=== PATIENT | male | born 1960 | race Caucasian/White ===

== ENCOUNTER → 2017-09-20 | Outpatient (CLI) | payer OTHER ==
[~2017-09-20] MED LIST: NASACORT10.8 ML NASAL; SIMVASTATIN40 MG PO
== END ==
LOC: ULTRA 07:52
DX: N43.3 Hydrocele, unspecified (principal)

== ENCOUNTER → 2019-01-07 | Outpatient (CLI) | payer OTHER | LOC: CAT 15:05 | DX: Z13.6 Encounter for screening for cardiovascular disorders (principal); E78.00 Pure hypercholesterolemia, unspecified; I25.10 Atherosclerotic heart disease of native coronary artery without angina pectoris ==

== ENCOUNTER → 2020-04-13 | Outpatient (CLI) | payer BC, OTHER ==
[~2020-04-13] MED LIST changes: +ATORVASTATIN CA10 MG PO; +FLONASE 0.05%50 MCG NASAL; +HYDROCODON-ACE1 EAC7 PO; +PRINIVIL20 MG PO
== END ==
LOC: LAB 08:15
PROVIDERS: ATTEND Surgery
DX: Z01.812 Encounter for preprocedural laboratory examination (principal); Z20.822 Contact with and (suspected) exposure to COVID-19

== ENCOUNTER 2020-04-15 08:24 | Day surgery (SDC) | payer BC ==
[~2020-04-15] VITALS: Ht 177.8 cm; Wt 86.2 kg
[~2020-04-15 08:24] MED LIST changes: -HYDROCODON-ACE1 EAC7 PO
--- NOTE | 2020-04-15 09:44 | EKG ---
[address] [address] ELECTROCARDIOGRAM REPORT Name: MARBELLA SILVA Room #: 150-13 [facility] M..#: [id number] Admission: 04/15/20 Attend Phys: Wilian Smith MD Discharge: Date of : 56 Report #: [id number] [facility] Test Date: 2020-04-15 Test Time: 09:26:04 Pat Name: MARBELLA SILVA Department: Room: 150 13 Gender: M Respite Worker: NATALIE : 1960 Requested By: Wilian Smith Order Number: [id number] : Jak Flaherty Measurements Intervals [place] Rate: 57 P: 13 OK: 128 QRS: 79 QRSD: 103 T: 65 QT: 425 QTc: 414 Interpretive Statements Sinus rhythm Non specific ST-T changes No previous ECG available for comparison Electronically Signed On 04-15-2020 9:44:03 ORNAMENT STITCHER by Jak Flaherty [email or web address] <ELECTRONICALLY SIGNED> By: Jak Flaherty MD, [facility] 04/15/20 0944 0926 5 Jak Flaherty MD, FACC /EPI
[2020-04-15 10:18] VITALS: BP 126/85
[2020-04-15 10:19] VITALS: BP 126/85
[2020-04-15] MEDS ORDERED: HYDROCODON-ACE1 EAC7 PO (12:35)
[2020-04-15 13:00] VITALS: BP 126/85
--- NOTE | 2020-04-16 12:27 | O ---
[facility] [place] [address] OPERATIVE REPORT Name: MARBELLA SILVA Room #: DEP [facility]..#: [id number] Admission: 04/15/20 Attend Phys: Wilian Smith MD Discharge: 04/15/20 Date of : 56 Report #: [id number] THIS REPORT FOR: cc: Miles Joiner MD, Rene P. MD Chu,Wilian Newman MD ~ DATE OF SERVICE: 04/15/2020 PREOPERATIVE DIAGNOSES: Recurrent left inguinal hernia and left hydrocele. POSTOPERATIVE DIAGNOSES: Recurrent left inguinal hernia with both indirect and direct component, less spermatocele. PROCEDURES PERFORMED: 1. Open repair of recurrent left inguinal hernia with mesh, large Prolene hernia system. 2. Spermatocelectomy. SURGEON: Wilian Smith MD ANESTHESIA: General anesthesia. COMPLICATIONS: None. ESTIMATED BLOOD LOSS: 30 mL. PROCEDURE NOTE: With the patient placed in supine position under general anesthetic with LMA, the left abdomen and groin was prepped with ChloraPrep. Timeout was performed. Abdomen was draped in a sterile fashion. Timeout was performed. A 0.25% Marcaine was used to anesthetize the skin and subcutaneous tissue. A total during surgery, 30 mL of 0.25% Marcaine was used. Transverse incision was made about a fingerbreadth above the pubic tubercle. Incision was carried down through subcutaneous tissue. A small vein was ligated. The patient has a wound in the left laterally over the iliac area apparently from the skin graft. Dissection through the skin and subcutaneous tissue, the external oblique fascia was isolated. The external oblique fascia was opened along the length of its fiber. It turned out the cord is more lateral and posterior to the incision. The ilioinguinal nerve was identified and preserved from harm. The external ring was opened. The cord structure was isolated. Dissection in the cord structure did reveal a small left indirect hernia sac. This is about 3 cm in length. This was free from the cord. At the internal ring, the sac was ligated with 2-0 PDS x 2. The floor of the inguinal canal did show weakness, particularly laterally. The edge of the mesh is palpated along the medial edge of the weak spot. Normally, the mesh would be covering the entire area. The patient was described as having a very weak floor and [address] [address] OPERATIVE REPORT Name: MARBELLA SILVA Room #: DEP [facility] M.R.#: [id number] Admission: 04/15/20 Attend Phys: Wilian Smith MD Discharge: 04/15/20 Date of : 56 Report #: [id number] nonexistent internal ring. I think that led to the recurrent hernia. The properitoneal space was opened up. During the dissection to open the properitoneal space, there was a neck of the inferior epigastric artery. The artery was noted to be medial femoral artery was dissecting and then realized that the artery took a turn and the artery was neck. There is no way to fix that. The artery was then isolated and ligated with 3-0 Vicryl suture. Both proximally and distally, it was ligated. Did not divide. After freeing the properitoneal space, large Prolene hernia system was used. The circular piece was placed in the properitoneal space under the wall. This was opened up as much as possible. The more anterior oval shaped part was placed above the floor of the inguinal canal. The oval portion was sewn to the pubic tubercle, the ilioinguinal ligament with a running 0 Prolene suture. Medially, the mesh was sutured to the anterior rectus sheath. A slit was made in the mesh for the cord, which was brought out medially. The mesh was then sewn to the lateral wall. The mesh seated well. The cord was returned to the canal. Irrigation was performed. A dry gauze was placed over the mesh area. The cord was then followed into the scrotum. With blunt dissection, I was able to see the cystic structure. Due to the large size, cannot get it to come up all the way, but the part of the cyst was brought up into the wound and this was opened and the fluid was released. Once the fluid was released, the entire testicle, epididymis was pulled up into the wound. It was easily delivered into the wound. This lining did not wrap itself around the testicles as a hydrocele. This is more superior consistent with spermatocele. This is still pretty large size about 6 cm. A thin lining was dissected free from surrounding tissue and this was then trimmed off at the base was attached. Then, the cyst was then sewn a running plain catgut suture, a 3-0 plain catgut suture, tacking it down. The hemostasis was obtained. The testicle was returned to the scrotal sac. Irrigation was then performed again. The Ray-Tecs gauze was removed over the mesh. The mesh was irrigated. The external oblique fascia was then closed with a 2-0 PDS in running fashion. Gopal's layer was reapproximated with 3-0 plain. Skin was closed with 5-0 PDS. Steri-Strip, 4 x 4, OpSite used for dressing. The patient tolerated the procedure well, awakened up and taken to recovery room. <ELECTRONICALLY SIGNED> By: Wilian Smith MD 04/16/20 1227 [id number] [id number] Wilian Smith MD /christiana
== END 2020-04-15 13:45 | disposition home or self-care (01) ==
LOC: OR 08:24 → TBA 08:29 → OR 08:46
PROVIDERS: ATTEND Surgery
DX: K40.91 Unilateral inguinal hernia, without obstruction or gangrene, recurrent (principal); N43.41 Spermatocele of epididymis, single; J45.909 Unspecified asthma, uncomplicated; E78.00 Pure hypercholesterolemia, unspecified; Z98.890 Other specified postprocedural states; Z79.899 Other long term (current) drug therapy; Z88.0 Allergy status to penicillin
CPT/HCPCS: 50010; 50101; 50386; 50403; 52061; 56524; 56525; 56526; 62110; 62900; 70005